=== PATIENT | female | born 1995 | race Two or more races ===

== ENCOUNTER 2024-03-10 16:36 | Emergency (ER) | payer MEDICAID ==
[~2024-03-10] VITALS: Ht 147.3 cm; Wt 87.1 kg
[2024-03-10 16:44] VITALS: BP 134/74; TEMP 98.2; O2SAT 100
[2024-03-10] MEDS ORDERED: CYCL5TAB PO (19:03)
[2024-03-10] MEDS ORDERED: KETO10TA2 PO (19:03)
== END 2024-03-10 19:10 | disposition home or self-care (01) ==
LOC: ER 16:36
DX: M54.50 Low back pain, unspecified (principal); Z79.899 Other long term (current) drug therapy
CPT/HCPCS: 72131-TC